=== PATIENT | female | born 1995 | race Caucasian/White ===

== ENCOUNTER → 2016-07-29 | Day surgery (SDC) | payer OTHER ==
[2016-07-26 11:00] LABS: BASO % 0.5 % (0.0-1.0); EOS # 0.1 10*3/uL (0.0-0.4); EOS % 1.1 % (1.0-4.0); HEMOGLOBIN 13.4 g/dl (12.0-16.0); LYMPH # 1.9 10*3/uL (1.3-4.4); LYMPH % 34.1 % (27.0-41.0); MEAN CELL VOLUME 91.7 fl (81.0-99.0); MEAN CORPUSCULAR HGB CONC 32.7 g/dl (33.0-37.0); MEAN PLATELET VOLUME 10.3 fl (9.6-12.3); MONO # 0.4 10*3/uL (0.1-1.0); MONO % 7.8 % (3.0-9.0); NEUT # 3.1 10*3/uL (2.3-7.9); NEUT % 56.3 % (47.0-73.0); PLATELET COUNT AUTOMATED 243 10*3/uL (130-400); RED BLOOD COUNT 4.47 10*6/uL (4.10-5.10); RED CELL DISTRI WIDTH 11.9 % (0-14.5); WHITE BLOOD COUNT 5.5 10*3/uL (4.8-10.8)
[~2016-07-29] VITALS: Ht 160 cm; Wt 65.8 kg
[~2016-07-29] MED LIST: LEXAPRO20 MG PO
--- NOTE | ~2016-07-29 | WRIGHTHP ---
[place], [place] PATIENT HISTORY AND PHYSICAL EXAM [id number] UNIT #: [id number] ROOM: DOCTOR: LIN DIETZ MD BIRTHDATE: [birth year] DOS: 07/29/2016 HISTORY OF PRESENT ILLNESS: This patient is a 21-year-old white female, virginal 0, whose last period was 07/01/2016, who had been seen initially on 06/17/2016. At that time, she had right flank pain, right lower quadrant pain, and a history of recurrent UTIs for several months. We did find evidence of 1 E. coli urinary tract infection, but then we found evidence of several contaminated specimens with treatment as well. The patient had also had a pelvic ultrasound which was normal. As I said, she is virginal, but at the time we did a PUF questionnaire and it turned it had a value of 15, which was interesting considering she was not sexually active and has had no nocturia and a number of normal voids per day. We had an excellent discussion, the patient and her mother and I about the workup and we had performed a Pap smear which was negative, a urine culture which was negative, and to my surprise on 07/01/2016, we performed a KCl challenge which was negative. I am still very suspicious of interstitial cystitis, but with that being negative, we then sat down on 07/15/2016 and had a good discussion about the fact that at times this pain is so significant that it almost doubles the patient over per the patient and her mother and they were very interested in proceeding with diagnostic laparoscopy to assess the pelvis. To that end, we reviewed the risks, benefits, indications, potential complications, and alternatives, understanding was stated and the consent was signed. I should also mention that the patient does not have any GI symptoms per se. PAST MEDICAL HISTORY: Reveals no surgeries. She is a nonsmoker and nondrinker. MEDICATIONS: She does take Lexapro 20 mg daily for anxiety and depression. REVIEW OF SYSTEMS: Otherwise is stable. FAMILY HISTORY: Reveals maternal grandmother with a history of heart attack and stroke. Her mother also has diabetes. She also has a paternal grandfather who had mesothelioma. PHYSICAL EXAMINATION: GENERAL: Reveals a pleasant 5 feet 3 inches, 135-pound white female, BMI 24 with blood pressure of 120/62 and in no significant distress. HEENT AND NECK: Completely normal. LUNGS: Completely normal. CARDIAC: Completely normal. BREASTS: Completely normal. ABDOMEN: Normal. EXTREMITIES: Intact. NEUROLOGIC: Intact. EXTERNAL GENITALIA: Did reveal some dermatomycosis that was resolving with treatment, but otherwise normal. The labia were normal. The urethra and urethral meatus normal. Vagina is stable. Cervix normal as I said with a recent normal Pap. Bimanual exam was completely normal with only mild tenderness suprapubically. The uterus was normal in size and configuration and mobile. Adnexa were negative. [place], [place] PATIENT HISTORY AND PHYSICAL EXAM NAME: SUKI ROLDAN UNIT #: [id number] ROOM: DOCTOR: LIN DIETZ MD BIRTHDATE: [birth year] RECTAL: Deferred. ASSESSMENT: The patient with persistent right lower quadrant pain that "is sometimes incapacitating." She also has some urgency symptoms and some history of recurrent urinary tract infections, making the situation suspicious for interstitial cystitis, but she did have a negative KCl challenge. To that end, on 07/29/2016, the patient will undergo a diagnostic laparoscopy. LIN DIETZ MD CM:HISPHYS:PATIENT HISTORY AND PHYSICAL EXAMINATION [id number] LIN DIETZ MD 07/26/16 1437 interface
--- NOTE | ~2016-07-29 | O ---
[place], [place] OPERATIVE NOTE NAME: SUKI ROLDAN UNIT #: [id number] ROOM: DOCTOR: LIN DIETZ MD BIRTHDATE: [birth year] DOS: 07/29/2016 PREOPERATIVE DIAGNOSIS: Intermittent sometimes severe right lower quadrant pain, etiology unknown, but pain so significant that it may be incapacitating per patient. POSTOPERATIVE DIAGNOSIS: Intermittent sometimes severe right lower quadrant pain, etiology unknown, but pain so significant that it may be incapacitating per patient with a normal pelvis and abdomen. OPERATION: Diagnostic laparoscopy. SURGEON: Jonatan. ANESTHESIA: General. ESTIMATED BLOOD LOSS: Minimal. REPLACEMENTS: IV fluids and Toradol. COMPLICATIONS: There were no complications. The patient's condition to recovery stable. OPERATIVE SUMMARY: The patient was taken to the operating room in supine position, general anesthesia, endotracheal intubation, lithotomy position, prepped and draped in routine manner. Sheldon was placed to straight drain. Due to the patient's virginity, we placed only a sponge on a stick within the vagina. We made an infraumbilical and suprapubic incision, we inserted under direct visualization the 5 mm trocar sleeve and laparoscope through the infraumbilical incision. We insufflated with CO2 followed by placement of the suprapubic 5 mm trocar sleeve and probe. Systematic examination of the pelvis revealed the anterior and posterior cul-de-sacs were completely normal. The fallopian tubes and ovaries were completely normal. All supporting structures were normal. The ureters were peristalsing normally. We examined the upper abdomen, liver, gallbladder and other upper abdominal structures all within normal limits to gross visualization. We noted no adhesions or other atypicalities. We evaluated the cecum and the ileocecal junction, but did not visualize the appendix per se. There were no adhesions or other atypicalities in this area, however. Having completed the survey both abdomen and pelvis and all being within normal limits we did remove the suprapubic trocar sleeve and probe and noting no excessive anterior abdominal bleeding. CO2 was allowed to escape, followed by removal of the infraumbilical trocar sleeve and laparoscope. Each incision was closed with subcuticular 3-0 Monocryl suture. Steri-Strips placed and dressings placed. Sponge on a stick was removed and the Sheldon catheter was removed with an output throughout the case about 75 mL of clear urine. The patient was cleaned off, taken out of lithotomy position, awakened, extubated, and transferred to recovery in satisfactory condition, stable sponge and instrument count, good hemostasis and stable vital signs. [place], [place] OPERATIVE NOTE NAME: SUKI ROLDAN Sum[facility] UNIT #: [id number] ROOM: DOCTOR: LIN DIETZ MD BIRTHDATE: [birth year] LIN DIETZ MD CM:OPRECORD:OPERATIVE NOTE [id number] LIN DIETZ MD 07/29/16 1209 interface
[2016-07-29 09:23] VITALS: BP 126/81
[2016-07-29 10:43] VITALS: BP 101/55
[2016-07-29 11:00] VITALS: BP 116/72
[2016-07-29 11:15] VITALS: BP 107/68
[2016-07-29 11:30] VITALS: BP 111/66
== END | disposition home or self-care (01) ==
LOC: SDC 07-24 10:15
PROVIDERS: Obstetrics & Gynecology
DX: R10.31 Right lower quadrant pain (principal); F41.9 Anxiety disorder, unspecified; F32.9 Major depressive disorder, single episode, unspecified; Z83.3 Family history of diabetes mellitus; Z82.49 Family history of ischemic heart disease and other diseases of the circulatory system

== ENCOUNTER → 2016-12-27 | Outpatient (CLI) | payer OTHER ==
[2016-12-27 10:22] LABS: BASO % 0.3 % (0.0-1.0); EOS # 0.1 10*3/uL (0.0-0.4); EOS % 1.9 % (1.0-4.0); HEMOGLOBIN 13.1 g/dl (12.0-16.0); LYMPH # 2.3 10*3/uL (1.3-4.4); LYMPH % 36.7 % (27.0-41.0); MEAN CELL VOLUME 93.7 fl (81.0-99.0); MEAN CORPUSCULAR HGB 30.7 pg (27.0-31.0); MEAN CORPUSCULAR HGB CONC 32.8 g/dl (33.0-37.0); MEAN PLATELET VOLUME 10.2 fl (9.6-12.3); MONO # 0.5 10*3/uL (0.1-1.0); MONO % 7.3 % (3.0-9.0); NEUT # 3.3 10*3/uL (2.3-7.9); NEUT % 53.6 % (47.0-73.0); PLATELET COUNT AUTOMATED 276 10*3/uL (130-400); RED BLOOD COUNT 4.27 10*6/uL (4.10-5.10); WHITE BLOOD COUNT 6.2 10*3/uL (4.8-10.8)
[2016-12-27 10:55] LABS: ALBUMIN 3.9 gm/dl (3.1-4.5); ALKALINE PHOSPHATASE 101 U/L (45-117); BUN 5 mg/dl (7-24); CHLORIDE 108 mmol/L (98-107); CHOLESTEROL 133 mg/dL (<200); HDL CHOLESTEROL 59 mg/dl (40-60); LDL CHOLESTEROL 67 mg/dL (9-159); POTASSIUM 4.4 mmol/L (3.5-5.1); SGOT/AST 17 IU/L (3-35); SGPT/ALT 16 U/L (12-78); SODIUM 141 mmol/L (136-145); TOTAL PROTEIN 7.1 gm/dL (6.4-8.2); TRIGLYCERIDES 36 mg/dl (<150); VLDL CHOLESTEROL 7 mg/dL (6-40)
== END | disposition home or self-care (01) ==
LOC: LAB 10:00
PROVIDERS: Internal Medicine
DX: M25.551 Pain in right hip (principal); E66.3 Overweight; R10.31 Right lower quadrant pain; M21.70 Unequal limb length (acquired), unspecified site

== ENCOUNTER → 2017-01-10 | Outpatient (CLI) | payer OTHER | END | disposition home or self-care (01) | LOC: MRI 10:41 | DX: M41.86 Other forms of scoliosis, lumbar region (principal) ==